=== PATIENT | male | born 1945 | race Caucasian/White ===

== ENCOUNTER 2023-01-02 23:49 | Inpatient (IN) | payer OTHER ==
[~2023-01-02] VITALS: Ht 172.7 cm; Wt 127.1 kg
[2023-01-03] VITALS (27 sets, daily range): BP systolic 106–158; BP diastolic 55–108
--- NOTE | 2023-01-03 03:00 | NUR ---
ADMISSION PT ARRIVED VIA EMS DIRECT ADMIT FROM [facility] FOR HIGHER LEVEL OF CARE R/T SYMPTOMATIC BRADYCARDIA. 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 BP WNL. NO COMPLAINTS OF CHEST PAIN/PRESSURE, NO COMPLAINTS OF N/V, NO COMPLAINTS OF PAIN OF ANY KIND AT THIS TIME. PT IS ON ROOM AIR W/OXYGEN SAT >90% AT THIS TIME. NO COMPLAINTS OF SOB AND NO S/S OF RESP DISTRESS AT TIME OF PT ARRIVAL. PT IV IS SL. HE IS ALERT AND ORIENTED X4 AND WAS ABLE TO TRANSFER FROM THE STRETCHER TO THE BED W/MINIMAL ASSIST AND W/OUT EXACERBATION OF CARDIAC ISSUES. HE REPORTED NO DIZZINESS. HE IS UNABLE TO PROVIDE MEDICATION LIST, DR CONTRERAS IS AWARE. PT IS AFEBRILE. PT REFUSES TO REMOVE PANTS.
[2023-01-03 05:41] LABS: BASOPHILS ABSOLUTE AUTO 0.03 K/mm3 (0.00-0.23); BASOPHILS PERCENT AUTO 0 % (0-2); EOSINOPHILS ABSOLUTE AUTO 0.19 K/mm3 (0.00-0.68); EOSINOPHILS PERCENT AUTO 2 % (0-6); Hematocrit 37.8 % (37.0-53.0); Hemoglobin 12.9 g/dL (13.5-17.5); IMMATURE GRAN ABSOLUTE AUTO 0.06 K/mm3 (0.00-0.10); IMMATURE GRAN PERCENT AUTO 1 % (0-1); LYMPHOCYTES ABSOLUTE AUTO 2.23 K/mm3 (0.84-5.20); LYMPHOCYTES PERCENT AUTO 28 % (21-46); MONOCYTES ABSOLUTE AUTO 0.59 K/mm3 (0.16-1.47); MONOCYTES PERCENT AUTO 7 % (4-13); Mean Corpuscular HGB 30.6 pg (26.0-34.0); Mean Corpuscular HGB Conc 34.1 g/dL (31.5-36.5); Mean Corpuscular Volume 90 fL (80-100); Mean Platelet Volume 9.4 fL (9.1-12.4); NEUTROPHILS ABSOLUTE AUTO 4.96 K/mm3 (1.96-9.15); NEUTROPHILS PERCENT AUTO 62 % (41-73); Platelet Count 181 K/mm3 (150-400); RDW Coefficient Variation 13.7 % (11.7-14.2); RDW Standard Deviation 44.8 fL (35.1-46.3); Red Blood Cell Count 4.21 M/mm3 (4.30-5.90); White Blood Cell Count 8.06 K/mm3 (4.00-11.30)
[2023-01-03 06:17] LABS: Alanine Aminotransfer (ALT/SGP 24 U/L (12-78); Albumin, Blood 3.3 g/dL (3.4-5.0); Albumin/Globulin Ratio 0.9 (0.8-1.8); Alk Phos 81 U/L (50-136); Anion Gap 1 mmol/L (6-16); Aspartate Aminotrans (AST/SGOT 12 U/L (12-37); Bilirubin, Total 0.4 mg/dL (0.1-1.0); Blood Urea Nitrogen 27 mg/dL (8-24); Bun/Creatinine Ratio 29.4 (12.0-20.0); CHOL/HDL RATIO 4.5; CO2, Blood 31 mmol/L (21-32); Calcium, Blood 8.9 mg/dL (8.5-10.1); Chloride, Blood 106 mmol/L (98-108); Cholesterol 185 mg/dL (50-200); Creatinine, Blood 0.92 mg/dL (0.60-1.20); Globulin, Blood 3.5 g/dL (2.2-4.0); Glomerular Filtration Rate 86 (60-); Glucose, Blood 104 mg/dL (70-99); HDL Cholesterol 41 mg/dL (>39); LDL/HDL RATIO 2.7; Low Density Lipoprotein Chol 112 mg/dL (0-110); Magnesium, Blood 2.1 mg/dL (1.6-2.4); Phosphorus, Blood 3.1 mg/dL (2.5-4.9); Potassium, Blood 3.5 mmol/L (3.5-5.5); Sodium, Blood 138 mmol/L (136-145); Total Protein, Blood 6.8 g/dL (6.4-8.2); Triglycerides 158 mg/dL (30-160); Very Low Density Lipoprot Chol 31 mg/dL (6-32)
[2023-01-03] MEDS ORDERED: ATOR40TA PO (08:23)
[2023-01-03] MEDS ORDERED: PIOG30 PO (08:24)
[2023-01-03] MEDS ORDERED: LOSA50 PO (08:25)
[2023-01-03] MEDS ORDERED: METF500 PO (08:26)
[2023-01-03] MEDS ORDERED: AMARYL PO (08:27)
[2023-01-03] MEDS ORDERED: LATA.005SO BOTHEYES (08:28)
[2023-01-03] MEDS ORDERED: CHLO25B PO (08:28)
[2023-01-03] MEDS ORDERED: ALLO100 PO (08:28)
--- NOTE | 2023-01-03 09:37 | NUR ---
CARE OF PT ASSUMED AT 0700. PT AWAKE AND ALERT, DENIES C/O PAIN. [facility] CALLED WITH PT PERMISSION TO OBTAIN PT'S MED LIST. DR JOVEL AND DR RANDALL IN TO SEE PT. ECHO COMPLETED. DR MARTI IN TO SEE PT. PT NPO FOR ANGIOGRAM TODAY. PT IN SINUS RHTHYM W RATE 70'S, BP STABLE. PT SBA TO BATHROOM, DENIES DIZZINESS WHEN UP.
--- NOTE | 2023-01-03 12:42 | NUR ---
Pt. is awake in bed and he welcomes my visit. Pt. is pleasant and verbalizes his expectation that he will be getting a pacemaker. Pt. verbalizes confidence in the proceduere and the medical staff. Pt. is pleasant. Faciltiated a life review and prayed with the Pt. Pt. verbalized gratitude for the spiritual care visit. 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
--- NOTE | 2023-01-03 14:37 | NUR ---
PT TO [facility] AT 1400 FOR PERM. PACE MAKER.
--- NOTE | 2023-01-03 17:09 | NUR ---
PT BACK FROM [facility] [employer] AT 1645. PT HAS OCC ATRIAL PACING. PT'S RATE 70'S. BP STABLE. PT AWAKE AND ALERT. DENIES PAIN TO SITE, BUT DOES C/O HEADACHE. POST XRAY TAKEN. DR NEWTON IN TO CHECK ON PT. ICE PACK TO SITE, JENNIFER C/D/I, NO SWELLING/HEMATOMA NOTED. PT EDUCATED TO KEEP LEFT ARM DOWN, SLING PLACED REMINDER.
--- NOTE | 2023-01-03 18:44 | NUR ---
DRSG TO LEFT PACER SITE REMAINS WNL. SATS OCC DECREASED TO MID 80'S WHILE SLEEPING, O2 AT 2L PLACED VIA N/C. SATS NOW REMAIN >90%.
[2023-01-04] VITALS (11 sets, daily range): BP systolic 113–163; BP diastolic 73–124
[2023-01-04 05:37] LABS: Source, Urine Clean Catch
[2023-01-04 05:48] LABS: Appearance, Urine Clear (Clear); Bilirubin, Urine Neg (Neg); Blood, Urine Neg (Neg); Color, Urine Yellow (P-Yellow); Glucose Qualitative, Urine Neg (Neg); Ketones, Urine Neg (Neg); Leukocyte Esterase, Urine Neg (Neg); Nitrite, Urine Neg (Neg); Protein, Urine Neg (Neg); Urobilinogen, Urine NORM (Normal)
--- NOTE | 2023-01-04 05:59 | NUR ---
SHIFT SUMMERY PT HAS HAD NO ACUTE CHANGES OVERNIGHT. HE IS ALERT AND ORIENTED X4, AMBULATORY TO COMMODE W/MINIMAL ASSIST. HE HAS HAD NO CHEST PAIN/PRESSURE. SR ON BRICK LOADER, PACED AT TIMES W/BP WNL. 2L NC WHILE SLEEPING MAINTAINING OXYGEN SAT IF >90%. PACEMAKER SITE DRESSING IS DRY AND INTACT, WNL.
--- NOTE | 2023-01-04 08:05 | NUR ---
INITIAL ASSESSMENT PATIENT ALERT AND ORIENTED X 4, AFEBRILE. PATIENT GIVEN PRN TYLENOL FOR COMPLAINTS OF PAIN. PATIENT SBA IN ROOM. PATIENT SATTING 90% AND GREATER ON RA. 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 HR IN THE 70S, SBP IN THE 130S. PATIENT HAD DUAL CHAMBER PACER AND IS PACED OCCASIONALLY. 1+ EDEMA NOTED TO BLES. GI WNL. WNL. DRESSING TO PACEMAKER INSERTION SITE C/D/I. CALL LIGHT IN REACH. WILL CONTINUE TO MONITOR PATIENT FREQUENTLY THROUGHOUT SHIFT.
--- NOTE | 2023-01-04 11:14 | NUR ---
Pt. is awake in bed and he welcomed my visit. Pt. displays evidence of good humor and verbalizes his anticipation for a D/C later today to his home in [place]. Facilitated more life review and re-established rapport. Pt. displayed evidence of awareness, engagement, and a motivation to follow discharge instructions in order to fully recover and resume his life. Prayed with Pt. Pt. verbalized gratitude for the spiritual care visit.
--- NOTE | 2023-01-04 11:16 | NUR ---
DR. RANDALL CALLED AND INFORMED THAT PATIENT HYPERTENSIVE. INFORMED THAT PATIENT ON DIURETIC AND BP MED AT HOME AND THAT THEY HAVE NOT BEEN RESTARTED HERE. ORDER RECEIVED TO RESTART COZAAR.
--- NOTE | 2023-01-04 12:46 | NUR ---
PATIENT AFEBRILE. NO COMPLAINTS OF PAIN AT THIS TIME. HR IN THE 80S. BP 163/110. HOME COZAAR DOSE ORDERED AND ADMINISTERED. BP NOW 137/85. BLOOD SUGAR 179; COVERAGE ADMINISTERED. NO OTHER ACUTE CHANGES TO NOTE ON AT THIS TIME. WILL CONTINUE TO MONITOR.
[2023-01-04] MEDS ORDERED: MAGNESIUM OXID500 MG PO (15:42)
--- NOTE | 2023-01-04 16:30 | NUR ---
DISCHARGE DISCHARGE INSTRUCTIONS PROVIDED TO PATIENT, INCLUDING FOLLOW UP APPOINTMENTS, PACEMAKER SITE CARE, AND MEDICATIONS. PT AMBULATED OUT TO HIS RIDE AT THE DEER ENTRANCE INDEPENDENTLY. ALL BELONGINGS INCLUDING WALLET AND CELL PHONE HOME WITH PATIENT.
== END 2023-01-04 16:25 | disposition home or self-care (01) | DRG 243 ==
LOC: ICUW 23:49
PROVIDERS: Family Medicine; ADMIT Student in an Organized Health Care Education/Training Program
PROC: 5A09357 Assistance with Respiratory Ventilation, Less than 24 Consecutive Hours, Continuous Positive Airway Pressure (ICD-10-PCS; 2023-01-02)
PROC: 0JH606Z Insertion of Pacemaker, Dual Chamber into Chest Subcutaneous Tissue and Fascia, Open Approach (ICD-10-PCS; principal; 2023-01-03)
PROC: 02H63JZ Insertion of Pacemaker Lead into Right Atrium, Percutaneous Approach (ICD-10-PCS; 2023-01-03)
PROC: 02HK3JZ Insertion of Pacemaker Lead into Right Ventricle, Percutaneous Approach (ICD-10-PCS; 2023-01-03)
DX: I44.2 Atrioventricular block, complete (principal); Z68.41 Body mass index [BMI] 40.0-44.9, adult; E11.9 Type 2 diabetes mellitus without complications; I44.0 Atrioventricular block, first degree; M10.9 Gout, unspecified; I10 Essential (primary) hypertension; E78.5 Hyperlipidemia, unspecified; E83.42 Hypomagnesemia; E66.01 Morbid (severe) obesity due to excess calories; G47.33 Obstructive sleep apnea (adult) (pediatric); Z99.89 Dependence on other enabling machines and devices; Z90.49 Acquired absence of other specified parts of digestive tract; Z98.890 Other specified postprocedural states; Z88.5 Allergy status to narcotic agent; Z79.899 Other long term (current) drug therapy; Z79.02 Long term (current) use of antithrombotics/antiplatelets; Z79.84 Long term (current) use of oral hypoglycemic drugs; Z89.022 Acquired absence of left finger(s); Z87.81 Personal history of (healed) traumatic fracture
CPT/HCPCS: 33208; 36415; 71045; 71046; 80053; 80061; 81003; 82947; 83036; 83735; 84100; 84443; 84484; 85025; 93005; 93010; 93306; 97112; 97162; 97165; 99152; 99153; A9270; C1751; C1785; C1894; C1898; J0690; J1644; J2250; J3010; J7030; J7040; J7050; Q9967